=== PATIENT | male | born 1935 | race Hispanic/Latino ===

== ENCOUNTER 2017-12-07 16:43 | Observation (INO) | payer OTHER ==
[~2017-12-07] VITALS: Ht 175.3 cm; Wt 103.1 kg
--- OUTSIDE RECORDS SUMMARY | 2017-12-07 16:46 | XMS REPORT | Clinical Summary ---
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 Hydrocodone Other (See Comments) 12/05/2016 dizziness Paroxetine Hcl Other (See Comments) 01/11/2017 NAUSEA/DROWSY, LOSS OF APPETITE Penicillins Rash Low 12/05/2016 Prednisone Other (See Comments) 12/05/2016 Elevated BP and BS Current Medications Prescription Sig. Disp. Refills Start End Date Status Date atorvastatin (LIPITOR) 20 12/05/19 Active MG tablet 17 glimepiride (AMARYL) 4 MG 11/21/19 Active tablet 17 omeprazole (PriLOSEC) 20 20 mg 2 (two) times a 12/05/19 Active MG capsule day. 17 tamsulosin (FLOMAX) 0.4 10/09/19 Active mg capsule,extended 17 release 24hr losartan (COZAAR) 50 MG 50 mg daily. 12/05/19 Active tablet 17 ALPRAZolam (XANAX) 0.25 Take 0.25 mg by mouth Active MG tablet daily. CA COMB NO.1/VIT Take 5,000 Int'l Units by Active D3/B6/FA/B12 (VITAMIN D3, mouth. CALCIUM CIT-PHOS, ORAL) aspirin (ECOTRIN) 81 MG Take 81 mg by mouth Active enteric coated tablet daily. cholecalciferol, vitamin Take 5,000 Units by Active D3, 5,000 unit tablet mouth. furosemide (LASIX) 40 mg Take 40 mg by mouth. 01/28/20 Active tablet 15 cilostazol (PLETAL) 50 MG Take 50 mg by mouth. 07/21/20 Active tablet 17 cholecalciferol, vitamin Take 5,000 Units by Active D3, 5,000 unit tablet mouth. losartan (COZAAR) 50 MG TAKE ONE TABLET BY MOUTH 03/04/20 Active tablet ONCE DAILY 17 carvedilol (COREG) 25 MG 25 mg 2 (two) times a day 09/18/19 02/23/20 Discontin tablet with meals. 17 17 ued felodipine (PLENDIL) 10 11/22/19 02/23/20 Discontin MG 24 hr tablet 17 17 ued furosemide (LASIX) 40 mg Take 40 mg by mouth 2 01/16/20 Discontin tablet (two) times a day. 17 ued ibuprofen (ADVIL,MOTRIN) Take 800 mg by mouth 01/19/20 Discontin 800 MG tablet every 6 (six) hours as 17 ued needed for mild pain. ASPIRIN/CAFFEINE (GABRIELLE Take by mouth. 01/12/20 Discontin BACK AND BODY ORAL) 17 ued FOLIC Take by mouth. 02/23/20 Discontin ACID/MULTIVIT-MIN/LUTEIN 17 ued (CENTRUM SILVER ORAL) ASPIRIN/CAFFEINE (GABRIELLE Take 500 mg by mouth 2 01/19/20 Discontin BACK AND BODY ORAL) (two) times a day. 17 ued traMADol (ULTRAM) 50 mg Take 1 tablet (50 mg 30 tablet 0 01/19/20 Discontin tablet total) by mouth every 6 17 17 ued (six) hours as needed for moderate pain for up to 10 days. levoFLOXacin (LEVAQUIN) Take 1 tablet (500 mg 7 tablet 0 01/19/20 500 MG tablet total) by mouth daily for 17 17 7 days. Active Problems Problem Noted Date Aftercare following surgery of the musculoskeletal system 01/25/2017 Lumbar stenosis 01/15/2017 Coronary artery disease involving [place] coronary artery 01/15/2017 Hypertension 01/15/2017 Spinal stenosis of lumbar region with neurogenic claudication 12/05/2016 Spondylolisthesis at L4-L5 level 12/05/2016 Encounters Date Type Specialty Care Team Description 04/10/2017 Office Visit Orthopedic Surgery Arnaldo Weiner MD Spondylolisthesis at L4-L5 level (Primary Dx); Spinal stenosis of lumbar region with neurogenic claudication 02/22/2017 Office Visit Orthopedic Surgery Arnaldo Weiner MD Aftercare following surgery of the musculoskeletal system (Primary Dx); Lumbar stenosis 01/25/2017 Office Visit Orthopedic Surgery Arnaldo Weiner MD Spondylolisthesis at L4-L5 level (Primary Dx); Spinal stenosis of lumbar region with neurogenic claudication; Aftercare following surgery of the musculoskeletal system 01/22/2017 Telephone Orthopedic Surgery Shawnee Salinas RN 01/15/2017 [facility] Orthopedic Surgery Arnaldo Weiner MD Lumbar stenosis; - Encounter Spondylolisthesis, lumbar 01/18/2017 region 01/15/2017 Prep for Orthopedic Surgery Mirian Bray PA-C Surgery 01/15/2017 Procedure Pass Orthopedic Surgery 01/15/2017 Surgery Orthopedic Surgery Arnaldo Weiner MD L4-5 & L5-S1 decompressive laminectomy (Dr. David Steen) with transverse process fusion and possible internal fixation(Dr. Arnaldo Weiner) 01/11/2017 Anesthesia Orthopedic Surgery Erin Perez, [employer] INTERN Event 12/28/2016 Prep for Orthopedic Surgery Mirian Bray PA-C Surgery 12/14/2016 Prep for Orthopedic Surgery Mirian Bray PA-C Lumbar stenosis (Primary Surgery Dx); Spondylolisthesis, lumbar region after 12/06/2016 Family History Medical History Relation Name Comments Cancer Father Relation Name Status Comments Father Mother liver complications Social History Tobacco Use Types Packs/Day Years Used Date Former Smoker Smokeless Tobacco: Never Used Alcohol Use Drinks/Week oz/Week Comments No Sex Assigned at Date Recorded Not on file Last Filed Vital Signs Vital Sign Reading Time Taken Blood Pressure 141/59 01/18/2017 11:46 AM CDT Pulse 78 01/18/2017 11:46 AM CDT Temperature 36.3 C (97.4 F) 01/18/2017 11:46 AM CDT Respiratory Rate 17 01/18/2017 11:46 AM CDT Oxygen Saturation 94% 01/18/2017 11:46 AM CDT Inhaled Oxygen - - Concentration Weight 100 kg (221 lb 4 oz) 01/15/2017 5:58 AM CDT Height 175.3 cm (5' 9") 01/15/2017 5:58 AM CDT Body Mass Index 32.67 01/15/2017 5:58 AM CDT Plan of Treatment Health Maintenance Due Date Last Done Comments ZOSTER VACCINE 1993 INFLUENZA VACCINE 04/10/2017 06/13/2016, 06/29/2015, 06/24/2014, Additional history exists PNEUMOCOCCAL Completed 04/20/2010 POLYSACCHARIDE VACCINE AGE 65 AND OVER PNEUMOCOCCAL-13 Completed 03/15/2016 Implants Implanted Type Area Electroplating Laborer Device Expiration Model / Identifier Date Serial / Lot Kit Hmstc Mtrx W/ F2 8ml Surgiflo - Surgical N/A: N/A ETHICON - [id number] / [id number] Implants; / Implanted: Qty: 1 on 01/15/2017 by Shantelle; Arnaldo Weiner MD Extenders; Surgical Wires Procedures Procedure Name Priority Date/Time Associated Diagnosis Comments INTRAOPERATIVE MONITORING Routine 01/15/2017 Results for this 10:52 AM CDT procedure are in the results section. MI AN ELECTIVE Routine 01/15/2017 ENDOTRACHEAL AIRWAY 8:57 AM CDT Procedure Note - Shira Casey MD - 01/15/2017 8:56 AM CDT Airway Performed by: SHIRA CASEY Authorized by: SHIRA CASEY Location: OR Urgency: Elective Difficult Airway: No Anesthesio logist: SHIRA CASEY Performed by: anesthesio logist Preoxygena lelia with 100% O2: Yes C-spine Precaution s Maintained Throughout : No Mask Ventilatio n: Easy mask Final Airway Type: Endotrache al airway Final Endotrache al Airway: ETT Cuffed: Yes Technique Used: Video laryngosco py Insertion Site: Oral Blade type: glidescope #3. Laryngosco pe Blade/Vide olaryngosc ope Blade Size: 3 Laryngosco pic view: Grade I - full view of glottis Rapid Sequence Induction (RSI): No Modified RSI: No Number of Attempts at Approach: 1 L4-5 & L5-S1 01/15/2017 Lumbar stenosis decompressive laminectomy 7:30 AM CDT (Dr. David Steen) with transverse process fusion and possible internal fixation(Dr. Arnaldo Weiner) Case Notes Kahlil table, WRS lami & fusion sets, neuro monitoring , [employer] Special Needs Kahlil table, WRS lami & fusion sets, neuro monitoring , [employer] after 12/06/2016 Results * XR Lumbar Spine Complete 4+ Vw (04/10/2017 4:25 PM) Only the most recent of 3 results within the time period is included. Specimen Performing Laboratory [address] [address] Narrative X-rays of the lumbar spine in 4 views today reveal multilevel degenerative changes. At the L4-L5 level there is been a central decompressive laminectomy. Bone graft is seen in the lateral gutters which is in completely incorporated. On the lateral view, there is a spondylolisthesis which is unchanged from previous x-rays. * POC glucose (01/18/2017 12:18 PM) Only the most recent of 14 results within the time period is included. Component Value Ref Range POC glucose 193 (H) 65 - 99 mg/dL Comment: [facility] Notified RN Meter ID: [id number] Wind Site Manager: Joaquin Morales Specimen Performing Laboratory [facility] DEPARTMENT OF PATHOLOGY AND GENOMIC MEDICINE [address] [place] [address] * Urinalysis screen and microscopy, with reflex to culture (01/17/2017 1:43 PM) Component Value Ref Range Specimen site Clean catch Color, UA Yellow Appearance, UA Clear Specific gravity, UA 1.024 1.001 - 1.035 pH, UA 5.0 5.0 - 8.5 Protein, UA 1+ (A) Negative Glucose, UA 1+ (A) Negative Ketones, UA Trace (A) Negative Bilirubin, UA Negative Negative Blood, UA Negative Negative Nitrite, UA Negative Negative Urobilinogen, UA 4.0 (A) <2.0 Leukocyte esterase, UA Negative Negative Epithelial cells, UA <1 /HPF WBC, UA 7 (H) 0 - 1 /HPF RBC, UA 2 (H) 0 - 1 /HPF Bacteria, UA Few None seen Yeast, UA None seen Yeast with pseudohyphae, None seen UA Hyaline casts, UA 15 /LPF Specimen Performing Laboratory Urine [facility] DEPARTMENT OF PATHOLOGY AND GENOMIC MEDICINE [address] [place] [id number] * Gram stain (01/17/2017 1:43 PM) Component Value Ref Range Gram stain isolate Rare WBC's No organisms seen Comment: Specimen Information Specimen Source: Urine Specimen Site: SEE UA Specimen Performing Laboratory Urine [facility] DEPARTMENT OF PATHOLOGY AND GENOMIC MEDICINE [address] [place] [address] * Urine culture (01/17/2017 1:43 PM) Component Value Ref Range Urine culture isolate Mixed Gram negative rods 10-1 cfu/ml (A) Comment: Specimen Information Specimen Source: Urine Specimen Site: SEE UA Specimen Performing Laboratory Urine [facility] DEPARTMENT OF PATHOLOGY AND GENOMIC MEDICINE [address] [place] [address] * Respiratory pathogen panel (01/17/2017 1:10 PM) Component Value Ref Range Respiratory pathogen Negative for all pathogens tested: panel Negative for Adenovirus Negative for Coronavirus HKU1 Negative for Coronavirus NL63 Negative for Coronavirus 229E Negative for Coronavirus OC43 Negative for Human Metapneumovirus Negative for Rhinovirus/Enterovirus Negative for Influenza A Negative for Influenza A/H1 Negative for Influenza A/H3 Negative for Influenza A/H1-2009 Negative for Influenza B Negative for Parainfluenza Virus 1 Negative for Parainfluenza Virus 2 Negative for Parainfluenza Virus 3 Negative for Parainfluenza Virus 4 Negative for Respiratory Syncytial Virus Negative for Bordetella pertussis Negative for Chlamydophila pneumoniae Negative for Mycoplasma pneumoniae This real-time PCR assay detects the presence of nucleic acids (RNA or DNA) for the respiratory pathogens listed. A result of "Not-detected" does not exclude the possibility of the presence of one or more pathogens at concentrations less than the detectable limits of the assay. Comment: Specimen Information Specimen Source: Nares Specimen Site: Right Specimen Performing Laboratory Nares - [facility] DEPARTMENT OF PATHOLOGY AND GENOMIC MEDICINE [address] [place] [address] * Blood culture, aerobic & anaerobic (01/17/2017 11:50 AM) Only the most recent of 2 results within the time period is included. Component Value Ref Range Blood culture isolate No growth after 5 days of incubation. Comment: Specimen Information Specimen Source: Blood Specimen Site: Antecubital, right Specimen Performing Laboratory Blood - Antecubital, [facility] DEPARTMENT OF PATHOLOGY [place] [address] * CBC with platelet and differential (01/17/2017 11:45 AM) Component Value Ref Range WBC 11.90 (H) 4.50 - 11.00 k/uL RBC 3.48 (L) 4.40 - 6.00 m/uL HGB 11.4 (L) 14.0 - 18.0 g/dL HCT 33.9 (L) 41.0 - 51.0 % MCV 97.4 82.0 - 100.0 fL MCH 32.8 27.0 - 34.0 pg MCHC 33.6 31.0 - 37.0 g/dL RDW - SD 50.2 37.0 - 55.0 fL MPV 10.3 8.8 - 13.2 fL Platelet count 164 150 - 400 k/uL Nucleated RBC 0.00 /100 WBC Neutrophils 80.9 (H) 39.0 - 69.0 % Lymphocytes 10.5 (L) 25.0 - 45.0 % Monocytes 7.6 0.0 - 10.0 % Eosinophils 0.2 0.0 - 5.0 % Basophils 0.3 0.0 - 1.0 % Immature granulocytes 0.5Comment: "Immature granulocytes" 0.0 - 1.0 % (promyelocytes, myelocytes, metamyelocytes) Specimen Performing Laboratory Blood [facility] DEPARTMENT OF PATHOLOGY AND GENOMIC MEDICINE [address] [place] [address] * XR Chest 1 Vw Portable (01/17/2017 11:20 AM) Specimen Performing Laboratory [facility] [address] [place] [address] Narrative Examination: XR CHEST 1 VW PORTABLE Clinical history: SHORTNESS OF BREATH Comparison: November 17, 2014 Impression: 1. The cardiac silhouette is mildly enlarged. 2. Elevation of the left hemidiaphragm with hazy opacity in the left base appears represent accommodation of trace pleural fluid, atelectasis, and infiltrate. 3. Vasculature is mildly congested. 4. Follow-up nonportable PA and lateral imaging is recommended when possible. [facility]-[id number] Procedure Note Interface, Radiology Results Incoming - 01/17/2017 11:49 AM CDT Examination: XR CHEST 1 VW PORTABLE Clinical history: SHORTNESS OF BREATH Comparison: November 17, 2014 Impression: 1. The cardiac silhouette is mildly enlarged. 2. Elevation of the left hemidiaphragm with hazy opacity in the left base appears represent accommodation of trace pleural fluid, atelectasis, and infiltrate. 3. Vasculature is mildly congested. 4. Follow-up nonportable PA and lateral imaging is recommended when possible. [facility]-[id number] * CBC hemogram (01/16/2017 4:13 AM) Component Value Ref Range WBC 10.96 4.50 - 11.00 k/uL RBC 3.54 (L) 4.40 - 6.00 m/uL HGB 11.5 (L) 14.0 - 18.0 g/dL HCT 34.1 (L) 41.0 - 51.0 % MCV 96.3 82.0 - 100.0 fL MCH 32.5 27.0 - 34.0 pg MCHC 33.7 31.0 - 37.0 g/dL RDW - SD 49.4 37.0 - 55.0 fL MPV 10.2 8.8 - 13.2 fL Platelet count 181 150 - 400 k/uL Nucleated RBC 0.00 /100 WBC Specimen Performing Laboratory Blood [facility] DEPARTMENT OF PATHOLOGY AND GENOMIC MEDICINE [address] [place] [address] * Intraoperative monitoring (01/15/2017 10:52 AM) Narrative INTRAOPERATIVE NEURO MONITORING Patient Name: Seng Cummings Date of : 1935 Gender: male Surgical Procedure: L4-L5, L5-S1 Decompressive Lami with Transverse Process Fusion & Possible Internal Fix OR: (OPC) Room #: (6) Tech #1: (JN) Start Time: (08:00) End Time: (09:49) Total Time (in hours): (2) Physician IOM Time: 2 Hours Procedure(s) performed During IOM: 55853 Diagnosis: M47.16 Date of Service: 01/15/17 Technical Summary Intraoperative neurophysiological monitoring was performed using free running electromyography (EMG)of the innervated muscle groups. A real time connection was established by the monitoring technologist with the examining neurologist throughout the operative procedure. Free running EMG of the innervated muscle groups was monitored continuously throughout the operative procedure with no sustained neurotonic discharges noted. Any sustained or periodic discharges in the EMG were reported to the surgeon in real time. Conclusion The absence of sustained neurotonic discharges on free-running EMG suggests that the monitored nerve roots remained essentially undisturbed. . * XR Lumbar Spine 1 Vw (01/15/2017 9:01 AM) Specimen Performing Laboratory [facility] [address] [place] [address] Narrative EXAMINATION: XR LUMBAR SPINE 1 VW CLINICAL HISTORY: Lumbar region back pain and radiculopathy. COMPARISON:None FINDINGS: There are radiopaque instruments in the posterior paraspinal soft tissues at the L4 and L5 level. One instrument tip overlaps the canal at the L4-5 disc space level. There are degenerative changes in the lumbar spine. IMPRESSION: Lateral intraoperative radiograph of the lumbar spine for localization during lumbar spine surgery. [facility]-[id number] Procedure Note Interface, Radiology Results Incoming - 01/15/2017 9:44 AM CDT EXAMINATION: XR LUMBAR SPINE 1 VW CLINICAL HISTORY: Lumbar region back pain and radiculopathy. COMPARISON: None FINDINGS: There are radiopaque instruments in the posterior paraspinal soft tissues at the L4 and L5 level. One instrument tip overlaps the canal at the L4-5 disc space level. There are degenerative changes in the lumbar spine. IMPRESSION: Lateral intraoperative radiograph of the lumbar spine for localization during lumbar spine surgery. [facility]-[id number] * Type and screen (01/15/2017 6:00 AM) Component Value Ref Range ABO grouping A Rh type POS Antibody screen (gel) NEG Specimen Performing Laboratory Blood [facility] DEPARTMENT OF PATHOLOGY AND GENOMIC MEDICINE [address] [place] [address] after 12/06/2016 Insurance Payer Benefit Subscriber ID Type Phone Address Plan / Group [employer] xxxxxxxxx [place] [address]
--- OUTSIDE RECORDS SUMMARY | 2017-12-07 16:46 | XMS REPORT | Clinical Summary ---
Author Author [facility] Organization [facility] Address Unknown Phone Unavailable Care Team Providers Care Nail Artist Name Role Phone PCP Unavailable Allergies Active Allergy Reactions Severity Noted Date Comments Ciprofloxacin Hcl Nausea And Vomiting 07/11/2015 Hydrocodone Other (See Comments) 07/13/2014 dizziness dizziness Paroxetine Hcl Nausea Only, Other (See 07/13/2014 Drowsy,nausea,loss of Comments) appetite. Drowsy,nausea,loss of appetite. Penicillins Rash, Itching Low 04/19/2013 Current Medications Prescription Sig. Disp. Refills Start End Date Status Date glimepiride (AMARYL) 4 MG Take 4 mg by mouth every Active tablet morning before breakfast Take 2 a day. calcium carbonate-vitamin Take 1 tablet by mouth 2 Active D2 500 mg(1,250mg) -200 (two) times daily. unit tablet cholecalciferol, vitamin Take 5,000 Units by mouth Active D3, 5,000 unit Tab once a week. ALPRAZolam (XANAX) 0.25 Take 0.25 mg by mouth Active MG tablet every night as needed for Anxiety. aspirin 81 MG chewable Take 81 mg by mouth daily Active tablet . carvedilol (COREG) 25 MG Take 25 mg by mouth 2 10/15/19 Active tablet (two) times daily with 15 breakfast and dinner TAKE ONE TABLET BY MOUTH TWICE DAILY WITH MEALS. felodipine (PLENDIL) 10 Take 20 mg by mouth daily 10/28/19 Active MG 24 hr tablet . 15 furosemide (LASIX) 40 MG Take 40 mg by mouth 2 01/28/20 Active tablet (two) times daily . 15 gabapentin (NEURONTIN) Take 300 mg by mouth 3 10/27/19 Active 300 MG capsule (three) times daily . 15 losartan (COZAAR) 50 MG TAKE ONE TABLET BY MOUTH 03/08/20 Active tablet ONCE DAILY. 15 omeprazole (PRILOSEC) 20 Take 20 mg by mouth daily 05/31/20 Active MG capsule . 15 potassium chloride Take 20 mEq by mouth Active (KLOR-CON) 20 mEq packet daily . tamsulosin (FLOMAX) 0.4 TAKE TWO CAPSULES BY 06/14/20 Active mg Cp24 24 hr capsule MOUTH ONCE DAILY AT 15 BEDTIME. sitaGLIPtin (JANUVIA) 50 Take 50 mg by mouth Active MG tablet daily. doxycycline (VIBRA-TABS) 06/06/20 Active 100 MG tablet 16 XOPENEX HFA 45 06/06/20 Active mcg/actuation inhaler 16 LOTEMAX 0.5 % DrpG 04/21/20 Active 16 inhalational spacing Use with the inhaler. 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
[2017-12-07] MEDS ORDERED: NITROGLYCERIN 0.4 MG SUBL SL PRN (18:30)
[2017-12-07] MEDS ORDERED: ASPIRIN 325 MG TAB PO ONE (18:30)
[2017-12-07] MEDS ORDERED: FELODIPINE ER10 MG PO (18:53)
[2017-12-07] MEDS ORDERED: ASPIR 8181 MG PO (18:53)
[2017-12-07] MEDS ORDERED: GLIMEPIRIDE2 MG PO (18:53)
[2017-12-07] MEDS ORDERED: CARVEDILOL12.5 MG PO (18:53)
[2017-12-07] MEDS ORDERED: ALPRAZOLAM0.25 M1 PO (18:53)
[2017-12-07] MEDS ORDERED: FUROSEMIDE40 MG PO (18:53)
[2017-12-07] MEDS ORDERED: ATORVASTATIN CA20 MG PO (18:53)
[2017-12-07] MEDS ORDERED: LOTEMAX5 ML OU (18:53)
[2017-12-07] MEDS ORDERED: OMEPRAZOLE40 MG PO (18:53)
[2017-12-07] MEDS ORDERED: TAMSULOSIN HCL0.4 MG PO (18:53)
[2017-12-07] MEDS ORDERED: LOSARTAN POTASS25 MG PO (18:53)
--- OUTSIDE RECORDS SUMMARY | 2017-12-07 20:42 | XMS REPORT | Clinical Summary ---
Author Author [facility] Address Unknown Phone Unavailable Care Team Providers Care Tank Filler Name Role Phone Matt Steen MD PCP [...] Lumbar stenosis 01/15/2017 Coronary artery disease involving [place] coronary artery 01/15/2017 Hypertension 01/15/2017 Spinal stenosis [...] Telephone Orthopedic Surgery Shawnee Salinas RN 01/15/2017 [facility] Orthopedic Surgery Arnaldo Weiner MD Lumbar stenosis; - Encounter Spondylolisthesis, lumbar 01/18/2017 region 01/15/2017 Prep for Orthopedic Surgery Mirian Bray PA-C Surgery 01/15/2017 Procedure Pass Orthopedic Surgery 01/15/2017 Surgery Orthopedic Surgery Arnaldo Weiner MD L4-5 & L5-S1 decompressive laminectomy (Dr. David Steen) with transverse process fusion and possible internal fixation(Dr. Arnaldo Weiner) 01/11/2017 Anesthesia Orthopedic Surgery Erin Perez, FURNACE CONVERTER Event 12/28/2016 Prep for Orthopedic Surgery Mirian [...] PNEUMOCOCCAL-13 Completed 03/15/2016 Implants Implanted Type Area Signal Mechanic Device Expiration Model / Identifier Date Serial / Lot Kit Hmstc Mtrx W/ F2 8ml Surgiflo - Surgical N/A: N/A ETHICON - [id number] / [id number] Implants; / Implanted: Qty: 1 on 01/15/2017 by Shantelle; Arnaldo Weiner MD Extenders; Surgical Wires Procedures Procedure Name Priority Date/Time Associated Diagnosis Comments INTRAOPERATIVE MONITORING Routine 01/15/2017 Results for this 10:52 AM CDT procedure are in the results section. OR AN ELECTIVE Routine 01/15/2017 ENDOTRACHEAL AIRWAY 8:57 [...] time period is included. Specimen Performing Laboratory [address] [address] Narrative X-rays of the lumbar spine in [...] 193 (H) 65 - 99 mg/dL Comment: [facility] Notified RN Meter ID: [id number] Microfiche Camera Operator: Joaquin Morales Specimen Performing Laboratory [facility] DEPARTMENT OF PATHOLOGY AND GENOMIC MEDICINE [address] [place] [address] * Urinalysis screen and microscopy, with reflex [...] UA 15 /LPF Specimen Performing Laboratory Urine [facility] DEPARTMENT OF PATHOLOGY AND GENOMIC MEDICINE [address] [place] [address] * Gram stain (01/17/2017 1:43 PM) Component Value Ref Range Gram stain isolate Rare WBC's No organisms seen Comment: Specimen Information Specimen Source: Urine Specimen Site: SEE UA Specimen Performing Laboratory Urine [facility] DEPARTMENT OF PATHOLOGY AND GENOMIC MEDICINE [address] [place] [address] * Urine culture (01/17/2017 1:43 PM) Component Value Ref Range Urine culture isolate Mixed Gram negative rods 10-1 cfu/ml (A) Comment: Specimen Information Specimen Source: Urine Specimen Site: SEE UA Specimen Performing Laboratory Urine [facility] DEPARTMENT OF PATHOLOGY AND GENOMIC MEDICINE [address] [place] [address] * Respiratory pathogen panel (01/17/2017 1:10 PM) [...] Site: Right Specimen Performing Laboratory Nares - [facility] DEPARTMENT OF PATHOLOGY AND GENOMIC MEDICINE [address] [place] [address] * Blood culture, aerobic & anaerobic (01/17/2017 11:50 AM) Only the most recent of 2 results within the time period is included. Component Value Ref Range Blood culture isolate No growth after 5 days of incubation. Comment: Specimen Information Specimen Source: Blood Specimen Site: Antecubital, right Specimen Performing Laboratory Blood - Antecubital, [facility] DEPARTMENT OF PATHOLOGY [place] [address] * CBC with platelet and differential (01/17/2017 [...] (promyelocytes, myelocytes, metamyelocytes) Specimen Performing Laboratory Blood [facility] DEPARTMENT OF PATHOLOGY AND GENOMIC MEDICINE [address] [place] [address] * XR Chest 1 Vw Portable (01/17/2017 11:20 AM) Specimen Performing Laboratory [facility] [address] [place] [address] Narrative Examination: XR CHEST 1 VW PORTABLE Clinical history: SHORTNESS OF BREATH Comparison: November 17, 2014 Impression: 1. The cardiac silhouette is mildly enlarged. 2. Elevation of the left hemidiaphragm with hazy opacity in the left base appears represent accommodation of trace pleural fluid, atelectasis, and infiltrate. 3. Vasculature is mildly congested. 4. Follow-up nonportable PA and lateral imaging is recommended when possible. [facility]-[id number] Procedure Note Interface, Radiology Results Incoming - [...] and lateral imaging is recommended when possible. [facility]-[id number] * CBC hemogram (01/16/2017 4:13 AM) Component [...] 0.00 /100 WBC Specimen Performing Laboratory Blood [facility] DEPARTMENT OF PATHOLOGY AND GENOMIC MEDICINE [address] [place] [address] * Intraoperative monitoring (01/15/2017 10:52 AM) Narrative INTRAOPERATIVE NEURO MONITORING Patient Name: Seng Cummings Date of : 1935 Gender: male Surgical Procedure: L4-L5, L5-S1 Decompressive Lami with Transverse Process Fusion & Possible Internal Fix OR: (OPC) Room #: (6) Tech #1: (JN) Start Time: (08:00) End Time: (09:49) Total Time (in hours): (2) Physician IOM Time: 2 Hours Procedure(s) performed During IOM: 41806 Diagnosis: M47.16 Date of Service: 01/15/17 Technical [...] (01/15/2017 9:01 AM) Specimen Performing Laboratory [facility] [address] [place] [address] Narrative EXAMINATION: XR LUMBAR SPINE 1 VW [...] spine for localization during lumbar spine surgery. [facility]-[id number] Procedure Note Interface, Radiology Results Incoming - [...] spine for localization during lumbar spine surgery. [facility]-[id number] * Type and screen (01/15/2017 6:00 AM) Component Value Ref Range ABO grouping A Rh type POS Antibody screen (gel) NEG Specimen Performing Laboratory Blood [facility] DEPARTMENT OF PATHOLOGY AND GENOMIC MEDICINE [address] [place] [address] after 12/06/2016 Insurance Payer Benefit Subscriber ID Type Phone Address Plan / Group TEXANPLUS TEXANPLUS xxxxxxxxx [place] [address]
--- OUTSIDE RECORDS SUMMARY | 2017-12-07 20:42 | XMS REPORT | Clinical Summary ---
Author Author JOHN [facility] Organization [facility] Address Unknown Phone Unavailable Care Team Providers Care Composition Worker Name Role Phone PCP Unavailable Allergies Active [...]
[2017-12-07 21:00] VITALS: BP 177/76
[2017-12-07 21:50] VITALS: BP 157/72
[2017-12-07] MEDS ORDERED: HYDRALAZINE HCL 20 MG/ML VIAL IV PRN (22:15)
[2017-12-07] MEDS ORDERED: DEXTROSE 50% SYRINGE 50 ML IV PRN (22:15)
[2017-12-07] MEDS: CARVEDILOL 12.5 MG TAB PO SCH (23:09)
[2017-12-07] MEDS: INSULIN LISPRO 100 UNIT/1 ML 3ML VIAL SQ SCH (23:10)
[2017-12-07 23:30] VITALS: BP 157/72
[2017-12-08] VITALS: BP 157/72
[2017-12-08 04:00] VITALS: BP 157/72
[2017-12-08] MEDS: INSULIN LISPRO 100 UNIT/1 ML 3ML VIAL SQ SCH ×2 (07:30→11:30)
[2017-12-08 07:39] LABS: BASOPHILS # (AUTO) 0.1 (0.0-0.1); BASOPHILS % 0.5 % (0.0-1.0); EOSINOPHILS # (AUTO) 0.4 (0.0-0.4); EOSINOPHILS % 3.2 % (0.0-6.0); HEMATOCRIT 35.9 % (38.2-49.6); HEMOGLOBIN 12.1 g/dL (14.0-18.0); LYMPHOCYTES # (AUTO) 2.7 (1.0-3.2); LYMPHOCYTES % 24.9 % (18.0-39.1); MEAN CORPUSCULAR HEMOGLOBIN 32.3 pg (28-32); MEAN CORPUSCULAR HGB CONC 33.7 g/dL (31-35); MEAN CORPUSCULAR VOLUME 95.7 fL (81-99); MONOCYTES # (AUTO) 0.8 (0.2-0.8); MONOCYTES % 7.7 % (4.4-11.3); NEUTROPHILS # (AUTO) 6.8 (2.1-6.9); NEUTROPHILS % 63.2 % (38.7-80.0); PLATELET COUNT 215 x10e3/uL (140-360); RED BLOOD COUNT 3.75 x10e6/uL (4.3-5.7)
[2017-12-08 07:59] VITALS: BP 174/74
[2017-12-08 08:03] LABS: ALANINE AMINOTRANSFERASE 14 IU/L (0-55); ALBUMIN 3.5 g/dL (3.5-5.0); ALKALINE PHOSPHATASE 71 IU/L (40-150); ANION GAP 11.6 mmol/L (8-16); BLOOD UREA NITROGEN 19 mg/dL (7-26); BUN/CREATININE RATIO 22 (6-25); CALCIUM 8.8 mg/dL (8.4-10.2); CARBON DIOXIDE 26 mmol/L (22-29); CHLORIDE 105 mmol/L (98-107); CREATINE KINASE 52 IU/L (30-200); CREATININE, SERUM 0.86 mg/dL (0.72-1.25); EST GLOMERULAR FILTRATION RATE > 60 ML/MIN (60-); GLUCOSE 82 mg/dL (74-118); POTASSIUM 3.6 mmol/L (3.5-5.1); SODIUM 139 mmol/L (136-145)
[2017-12-08 08:07] LABS: CHOL/HDL RATIO 2.3 (3.9-4.7)
[2017-12-08 10:30] VITALS: BP 174/74
[2017-12-08] MEDS: CARVEDILOL 12.5 MG TAB PO SCH (10:30)
[2017-12-08] MEDS ORDERED: ALPRAZOLAM 0.25 MG TAB PO PRN (11:00)
--- NOTE | 2017-12-08 11:43 | Discharge Summary ---
PRIMARY CARE PHYSICIAN: ELISEO PHILIP MD. FINAL DIAGNOSES 1. Non-cardiac chest pain due to side effects from prednisone. 2. Hypertension. 3. Coronary artery disease with previous bypass surgery about 12 years ago. 4. Dyslipidemia. 5. Diabetes. 6. Benign prostatic hypertrophy. 7. Gastroesophageal reflux disease. CONSULTANTS: None. PROCEDURES/STUDIES PERFORMED: None. HISTORY: Per H\T\P. HOSPITAL COURSE: Currently, the patient is completely chest pain free, back to baseline. His chest discomfort lasted for several hours. His repeat troponins are negative. Repeat EKG is completely normal. His chest pain is likely due to side effects from prednisone which he took for the first time yesterday morning right before his chest pain. CONDITION ON DISCHARGE: Stable. DISCHARGE MEDICATIONS: Please see medication reconciliation form. The patient was seen and examined today. ANIVAL HERRMANN M.D. Job#: [id number] cc:ELISEO PHILIP M.D.
[2017-12-08 12:00] VITALS: BP 124/67
[2017-12-08] MEDS ORDERED: LOSARTAN POTASSIUM 25 MG TAB PO SCH (12:45)
[2017-12-08] MEDS ORDERED: TAMSULOSIN HCL 0.4 MG CAP PO SCH (21:00)
[2017-12-08] MEDS ORDERED: ATORVASTATIN 20 MG TAB PO SCH (21:00)
[2017-12-09] MEDS ORDERED: PANTOPRAZOLE SOD 40 MG TABEC PO SCH (07:30)
[2017-12-09] MEDS ORDERED: FUROSEMIDE 40 MG TAB PO SCH (09:00)
[2017-12-09] MEDS ORDERED: FELODIPINE 5 MG TAB CR PO SCH (09:00)
[2017-12-09] MEDS ORDERED: GLIMEPIRIDE 2 MG TAB PO SCH (09:00)
[2017-12-09] MEDS ORDERED: LOSARTAN POTASSIUM 25 MG TAB PO SCH (09:00)
== END 2017-12-08 14:31 | disposition home or self-care (01) ==
LOC: FSED 16:43 → MED/SURG 20:39
PROVIDERS: ADMIT Internal Medicine; ATTEND Internal Medicine
DX: R07.89 Other chest pain (principal); T38.0X5A Adverse effect of glucocorticoids and synthetic analogues, initial encounter; I10 Essential (primary) hypertension; E11.65 Type 2 diabetes mellitus with hyperglycemia; Z95.1 Presence of aortocoronary bypass graft; E78.5 Hyperlipidemia, unspecified; N40.0 Benign prostatic hyperplasia without lower urinary tract symptoms; K21.9 Gastro-esophageal reflux disease without esophagitis; I25.10 Atherosclerotic heart disease of native coronary artery without angina pectoris
CPT/HCPCS: 36415 ×2; 80053; 80061; 82550; 82553; 82948 ×2; 84484; 85025; 93005 ×2; 99284; G0378 ×2

== ENCOUNTER 2018-12-18 17:12 | Observation (INO) | payer OTHER ==
[~2018-12-18] VITALS: Ht 175.3 cm; Wt 107.7 kg
[~2018-12-18 17:12] MED LIST: ALPRAZOLAM0.25 M1 PO; ASPIR 8181 MG PO; ATORVASTATIN CA20 MG PO; CARVEDILOL12.5 MG PO; FELODIPINE ER10 MG PO; FUROSEMIDE40 MG PO; GLIMEPIRIDE2 MG PO; LOSARTAN POTASS25 MG PO; LOTEMAX5 ML OU; OMEPRAZOLE40 MG PO; TAMSULOSIN HCL0.4 MG PO
--- OUTSIDE RECORDS SUMMARY | 2018-12-18 17:14 | XMS REPORT ---
Author Author [facility] Address Unknown Phone Unavailable Care Team Providers Care Farm Operations Manager Name Role Phone Unavailable Unavailable Problems This patient has no known problems. Allergies, Adverse Reactions, Alerts This patient has no known allergies or adverse reactions. Medications This patient has no known medications. Results Test Description Test Time Test Comments Text Results Atomic Results Result Comments MR, SPINE, LUMBAR, WITHOUT CONTRAST 2018-12-10 14:48:00 FINAL REPORT MR, SPINE, LUMBAR, WITHOUT CONTRAST INDICATION: SPINAL STENOSIS OF LUMBAR REGION WITH NEUROGENIC CLAUDIFICATION,RADICULAR PAIN OF RT LOWER EXTREMITY,RADICULAR PAIN OF LT LOWER EXTREMITY COMPARISON: 10/31/16 TECHNIQUE: Multiplanar, multisequence MR images of the lumbar spine without contrast. FINDINGS: Numbering: Last fully formed disc space is designated L5-S1. Spinal cord: The conus medullaris is normal is size, signal intensity, and position, terminating at the T12-L1 level. Osseous structures: There is grossly preserved alignment. Anterolisthesis is approximately grade 1 at L4-5. This is unchanged from prior. There is gross preservation of vertebral body height. No aggressive osseous lesions are identified. Discs: There is multilevel disc dessication without significant loss of disc space height. Evaluation of the individual levels demonstrates: L1/L2: Degenerative changes creating mild to moderate canal narrowing. Mild bilateral foraminal stenosis. L2/L3: No canal narrowing. Mild bilateral foraminal stenosis. L3/L4: Broad disc bulge and facet arthropathy creating moderate canal narrowing. Moderate to severe bilateral foraminal stenosis. Laminectomy changes are present. L4/L5: Pseudobulge of subluxation superimposed on degenerative changes. Prior laminectomies relieving canal narrowing. Moderate to severe bilateral foraminal stenosis is present. L5 /S1: No canal or foraminal stenosis. Paraspinal soft tissues: Paraspinal soft tissues and visible retroperitoneal structures are unremarkable. IMPRESSION: Laminectomies the L4 and L5 relating canal narrowing. Moderate to severe bilateral foraminal stenosis at L3-4 and L4-5. Signed: JR Dial [facility] Verified Date/Time: 12/10/2018 14:48:50 Reading Location: [facility] Radiology Reading Room
--- OUTSIDE RECORDS SUMMARY | 2018-12-18 17:14 | XMS REPORT | Clinical Summary ---
Author Author JOHN [facility] Organization [facility] Address Unknown Phone Unavailable Care Team Providers Care Algorithm Design Engineer Name Role Phone Jroge Marie 31 Unavailable Kylah Fierro MD PCP Unavailable Allergies Comments Active Allergy Reactions Severity Noted Date Ciprofloxacin Hcl Nausea And 07/11/2015 Vomiting dizziness dizziness Hydrocodone Other (See 07/13/2014 Comments) Drowsy,nausea,loss of appetite. Drowsy,nausea,loss of appetite. Paroxetine Hcl Nausea Only, 07/13/2014 Other (See Comments) Penicillins Rash, Itching Low 04/19/2013 Medications End Date Status Medication Sig Dispensed Refills Start Date Active glimepiride (AMARYL) 4 MG Take 4 mg by 0 tablet mouth every morning before breakfast Take 2 a day. Active calcium carbonate-vitamin Take 1 tablet 0 D2 500 mg(1,250mg) -200 by mouth 2 unit tablet (two) times daily. Active cholecalciferol, vitamin Take 5,000 0 D3, 5,000 unit Tab Units by mouth once a week. Active ALPRAZolam (XANAX) 0.25 Take 0.25 mg 0 MG tablet by mouth every night as needed for Anxiety. Active aspirin 81 MG chewable Take 81 mg by 0 tablet mouth daily . Active carvedilol (COREG) 25 MG Take 25 mg by 0 02/05/201 tablet mouth 2 (two) 5 times daily with breakfast and dinner TAKE ONE TABLET BY MOUTH TWICE DAILY WITH MEALS. Active felodipine (PLENDIL) 10 Take 20 mg by 0 02/18/201 MG 24 hr tablet mouth daily . 5 Active furosemide (LASIX) 40 MG Take 40 mg by 0 05/20/201 tablet mouth 2 (two) 5 times daily . Active gabapentin (NEURONTIN) Take 300 mg 0 300 MG capsule by mouth 3 5 (three) times daily . Active losartan (COZAAR) 50 MG TAKE ONE 0 tablet TABLET BY 5 MOUTH ONCE DAILY. Active omeprazole (PRILOSEC) 20 Take 20 mg by 0 MG capsule mouth daily . 5 Active potassium chloride Take 20 mEq 0 (KLOR-CON) 20 mEq packet by mouth daily . Active tamsulosin (FLOMAX) 0.4 TAKE TWO 0 mg Cp24 24 hr capsule CAPSULES BY 5 MOUTH ONCE DAILY AT BEDTIME. Active sitaGLIPtin (JANUVIA) 50 Take 50 mg by 0 MG tablet mouth daily. Active doxycycline (VIBRA-TABS) 0 100 MG tablet 6 Active XOPENEX HFA 45 0 mcg/actuation inhaler 6 Active LOTEMAX 0.5 % DrpG 0 6 Active inhalational spacing Use with the 1 each 0 device (AEROCHAMBER) Spcr inhaler. 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 Cholecystitis 11/09/2014 HTN (hypertension) 11/09/2014 CAD (coronary artery disease) 11/09/2014 DM (diabetes mellitus) 11/09/2014 Chest pain 10/19/2014 Constipation 10/19/2014 Leukocytosis 10/19/2014 Encounters Care Team Description Date Type Specialty Holly Gastelum DO Spinal stenosis of lumbar region with neurogenic claudication; Radicular pain of left lower extremity; Radicular pain of right lower extremity 12/10/2018 Hospital Radiology Encounter Holly Gastelum DO Spinal stenosis of lumbar region with neurogenic claudication (Primary Dx); Radicular syndrome of right leg; Radicular pain of left lower extremity; Radicular pain of right lower extremity 12/05/2018 Outside Orders Radiology after 12/17/2017 Family History Medical History Relation Name Comments Cancer Brother Relation Name Status Comments Brother Social History Date Tobacco Use Types Packs/Day Years Used Never Smoker Alcohol Use Drinks/Week oz/Week Comments No Sex Assigned at Date Recorded Not on file Industry Job Start Date Occupation Not on file Not on file Not on file Travel End Travel History Travel Start No recent travel history available. Last Filed Vital Signs Not on file Plan of Treatment Not on file Procedures Comments Procedure Name Priority Date/Time Associated Diagnosis MR SPINE LUMBAR WITHOUT Routine 12/10/2018 Spinal stenosis of lumbar IV CONTRAST 2:49 PM CDT region with neurogenic claudication Radicular pain of left lower extremity Radicular pain of right lower extremity after 12/17/2017 Results * MR spine lumbar without IV contrast (12/10/2018 2:49 PM CDT) Narrative Performed At FINAL REPORT [facility] MR, SPINE, LUMBAR, WITHOUT CONTRAST INDICATION: SPINAL STENOSIS OF LUMBAR REGION WITH NEUROGENIC CLAUDIFICATION,RADICULAR PAIN OF RT LOWER EXTREMITY,RADICULAR PAIN OF LT LOWER EXTREMITY COMPARISON: 10/31/16 TECHNIQUE: Multiplanar, multisequence MR images of the lumbar spine without contrast. FINDINGS: Numbering: Last fully formed disc space is designated L5-S1. Spinal cord: The conus medullaris is normal is size, signal intensity, and position, terminating at kamP48-G2 level. Osseous structures: There is grossly preserved alignment. Anterolisthesis is approximately grade 1 at L4-5. This is unchanged from prior. There is gross preservation of vertebral body height. No aggressive osseous lesions are identified. Discs:There is multilevel disc dessication without significant loss [...] to severe bilateral foraminal stenosis is present. L5/S1: No canal or foraminal stenosis. Paraspinal soft tissues: Paraspinal soft tissues and visible retroperitoneal structures are unremarkable. IMPRESSION: Laminectomies the L4 and L5 relating canal narrowing. Moderate to severe bilateral foraminal stenosis at L3-4 and L4-5. Signed: JR Lujan Robert MD Report Verified Date/Time:12/10/2018 14:48:50 Reading Location: [facility] Radiology Reading Room Procedure Note Interface, External Ris In - 12/10/2018 2:51 PM CDT FINAL REPORT MR, SPINE, LUMBAR, WITHOUT CONTRAST [...] to severe bilateral foraminal stenosis is present. L5/S1: No canal or foraminal stenosis. Paraspinal soft tissues: Paraspinal soft tissues and visible retroperitoneal structures are unremarkable. IMPRESSION: Laminectomies the L4 and L5 relating canal narrowing. Moderate to severe bilateral foraminal stenosis at L3-4 and L4-5. Signed: JR Lujan Robert MD Report Verified Date/Time: 12/10/2018 14:48:50 Reading Location: [facility] Radiology Reading Room Performing Organization Address City/State/Zipcode Phone Number GE RIS after 12/17/2017 Insurance Payer Benefit Subscriber ID Type Phone Address Plan / Group TEXANPLUS TEXANPLUS xxxxxxxxx [facility] Contracted Advance Directives For more information, please contact: [place] [phone] [place] [address] Date Inactivated Comments Code Status Date Activated 08/21/2015 4:44 PM Full Code 08/17/2015 8:22 AM This code status was determined by: Patient 11/12/2014 3:36 PM Full Code 11/09/2014 3:10 PM This code status was determined by: Patient 10/20/2014 9:46 PM Full Code 10/19/2014 4:53 PM This code status was determined by: Patient 07/29/2014 1:34 PM Full Code 07/24/2014 4:00 PM This code status was determined by: Patient
--- OUTSIDE RECORDS SUMMARY | 2018-12-18 17:14 | XMS REPORT | Clinical Summary ---
Author Author [facility] Organization [facility] Address Unknown Phone Unavailable Care Team Providers Care Director Of Food And Nutrition Name Role Phone David Steen MD PCP Allergies Comments Active Allergy Reactions Severity Noted Date Decreased glucose level to 30's.. Ciprofloxacin Other (See 12/05/2016 Comments) dizziness Hydrocodone Other (See 12/05/2016 Comments) NAUSEA/DROWSY, LOSS OF APPETITE Paroxetine Hcl Other (See 01/11/2017 Comments) Penicillins Rash Low 12/05/2016 Elevated BP and BS Prednisone Other (See 12/05/2016 Comments) Medications End Date Status Medication Sig Dispensed Refills Start Date Active atorvastatin (LIPITOR) 20 0 MG tablet 7 Active glimepiride (AMARYL) 4 MG 0 tablet 7 Active omeprazole (PriLOSEC) 20 20 mg 2 (two) 0 MG capsule times a day. 7 Active tamsulosin (FLOMAX) 0.4 0 mg capsule,extended 7 release 24hr Active losartan (COZAAR) 50 MG 50 mg daily. 0 tablet 7 Active ALPRAZolam (XANAX) 0.25 Take 0.25 mg 0 MG tablet by mouth daily. Active CA COMB NO.1/VIT Take 5,000 0 D3/B6/FA/B12 (VITAMIN D3, Int'l Units CALCIUM CIT-PHOS, ORAL) by mouth. Active aspirin (ECOTRIN) 81 MG Take 81 mg by 0 enteric coated tablet mouth daily. Active cholecalciferol, vitamin Take 5,000 0 D3, 5,000 unit tablet Units by mouth. Active furosemide (LASIX) 40 mg Take 40 mg by 0 tablet mouth. 5 Active cilostazol (PLETAL) 50 MG Take 50 mg by 0 tablet mouth. 7 Active cholecalciferol, vitamin Take 5,000 0 D3, 5,000 unit tablet Units by mouth. Active losartan (COZAAR) 50 MG TAKE ONE 0 tablet TABLET BY 7 MOUTH ONCE DAILY Active Problems Problem Noted Date Aftercare following surgery of the musculoskeletal system 01/25/2017 Lumbar stenosis 01/15/2017 Coronary artery disease involving [place] coronary artery 01/15/2017 Hypertension 01/15/2017 Spinal stenosis of lumbar region with neurogenic claudication 12/05/2016 Spondylolisthesis at L4-L5 level 12/05/2016 Family History Medical History Relation Name Comments Cancer Father Relation Name Status Comments Father Mother liver complications Social History Date Tobacco Use Types Packs/Day Years Used Former Smoker Smokeless Tobacco: Never Used Alcohol Use Drinks/Week oz/Week Comments No Sex Assigned at Date Recorded Not on file Industry Job Start Date Occupation Not on file Not on file Not on file Travel End Travel History Travel Start No recent travel history available. Last Filed Vital Signs Not on file Plan of Treatment Health Maintenance Due Date Last Done Comments SHINGLES VACCINES (#1) 1983 INFLUENZA VACCINE 04/10/2019 06/13/2016, 06/29/2015, 06/24/2014, Additional history exists PNEUMOCOCCAL Completed 04/20/2010 POLYSACCHARIDE VACCINE AGE 65 AND OVER 65+ PNEUMOCOCCAL VACCINE Completed 03/15/2016, 04/20/2010 Implants Device Identifier Shelf Expiration Date Model / Serial / Lot Implanted Type Area Manufactur er [id number] / / Kit Hmstc Mtrx W/ F2 8ml Surgiflo - Surgical N/A: N/A ETHICON [id number] Implants; [facility] Implanted: Qty: 1 on 01/15/2017 by Expanders; Arnaldo Weiner MD Extenders; Surgical Wires Results Not on fileafter 12/17/2017 Insurance Payer Benefit Subscriber ID Type Phone Address Plan / Group TEXANPLUS TEXANPLUS xxxxxxxxx Inge MCINTYRE Advance Directives Patient has advance care planning documents on file. For more information, wes marvin contact: Panchito Liz [address] [place] [address]
[2018-12-18] MEDS ORDERED: ASPIRIN 81 MG CHEW TAB PO ONE ×2 (17:30→19:15)
[2018-12-18 18:09] LABS: BASOPHILS # (AUTO) 0.1 (0.0-0.1); BASOPHILS % 0.9 % (0.0-1.0); EOSINOPHILS # (AUTO) 0.6 (0.0-0.4); EOSINOPHILS % 7.1 % (0.0-6.0); HEMATOCRIT 36.2 % (38.2-49.6); LYMPHOCYTES # (AUTO) 1.8 (1.0-3.2); LYMPHOCYTES % 22.2 % (18.0-39.1); MEAN CORPUSCULAR HEMOGLOBIN 32.7 pg (28-32); MEAN CORPUSCULAR HGB CONC 33.1 g/dL (31-35); MEAN CORPUSCULAR VOLUME 98.6 fL (81-99); MONOCYTES # (AUTO) 0.6 (0.2-0.8); NEUTROPHILS # (AUTO) 4.9 (2.1-6.9); NEUTROPHILS % 61.5 % (38.7-80.0); PLATELET COUNT 224 x10e3/uL (140-360); RED BLOOD COUNT 3.67 x10e6/uL (4.3-5.7); RED CELL DISTRIBUTION WIDTH 13.9 % (11.7-14.4)
--- NOTE | 2018-12-18 18:14 | Diagnostic Imaging Report ---
EXAMINATION: PA and lateral views of the chest. COMPARISON: None CLINICAL HISTORY: Chest pain DISCUSSION: Lines/tubes: Sternotomy wires. Lungs: The lungs are well inflated and clear. No pneumonia or pulmonary edema. Pleura: No pleural effusion or pneumothorax. Heart and mediastinum: Cardiomegaly. Bones and soft tissues: No acute bony abnormalities. IMPRESSION: Cardiomegaly without decompensation Signed by: Dr. Jairo Moralez M.D. on 12/18/2018 6:11 PM
[2018-12-18 18:15] LABS: BILIRUBIN,URINE NEGATIVE (NEGATIVE); CLARITY,URINE CLEAR (CLEAR); COLOR,URINE YELLOW (YELLOW); KETONES,URINE NEGATIVE (NEGATIVE); LEUKOCYTE ESTERASE ,URINE NEGATIVE (NEGATIVE); NITRITE,URINE NEGATIVE (NEGATIVE); PROTEIN,URINE DIPSTICK NEGATIVE (NEGATIVE); URINE UROBILINOGEN 0.2 mg/dL (0.2 - 1)
[2018-12-18 18:21] LABS: INR 0.91; PROTHROMBIN TIME 12.7 seconds (11.9-14.5)
[2018-12-18 18:22] LABS: PARTIAL THROMBOPLASTIN TIME 33.2 seconds (23.8-35.5)
[2018-12-18 18:24] LABS: ALANINE AMINOTRANSFERASE 12 IU/L (0-55); ALBUMIN 3.6 g/dL (3.5-5.0); ALBUMIN/GLOBULIN RATIO 0.9 (0.8-2.0); ALKALINE PHOSPHATASE 76 IU/L (40-150); BLOOD UREA NITROGEN 19 mg/dL (7-26); BUN/CREATININE RATIO 17 (6-25); CARBON DIOXIDE 26 mmol/L (22-29); CHLORIDE 104 mmol/L (98-107); CREATINE KINASE 60 IU/L (30-200); CREATININE, SERUM 1.11 mg/dL (0.72-1.25); EST GLOMERULAR FILTRATION RATE > 60 ML/MIN (60-); GLUCOSE 115 mg/dL (74-118); MAGNESIUM 2.2 MG/DL (1.3-2.1); SODIUM 137 mmol/L (136-145)
[2018-12-18 18:28] LABS: BACTERIA,URINE RARE /HPF
[2018-12-18 18:43] LABS: THYROID STIMULATING HORMONE 1.322 uIU/mL (0.350-4.940)
[2018-12-18] MEDS ORDERED: ONDANSETRON HCL INJ 2MG/ML 2ML 2 MG/ML VIAL IV PRN (19:15)
[2018-12-18] MEDS ORDERED: SODIUM CHLORIDE FLUSH 10 ML SYR INJ PRN (19:15)
[2018-12-18] MEDS ORDERED: NITROGLYCERIN 0.4 MG SUBL SL PRN (19:15)
[2018-12-18] MEDS ORDERED: ONDANSETRON HCL 4 MG ORAL DISINTEGRATING TAB PO PRN (19:30)
--- OUTSIDE RECORDS SUMMARY | 2018-12-18 19:33 | XMS REPORT | Clinical Summary ---
Author Author JOHN [facility] Organization [facility] Address Unknown Phone Unavailable Care Team Providers Care It Technical Specialist Name Role Phone Jorge Marie 31 Unavailable Kylah Fierro MD PCP [...] PM CDT) Narrative Performed At FINAL REPORT [employer] MR, SPINE, LUMBAR, WITHOUT CONTRAST INDICATION: SPINAL STENOSIS OF LUMBAR REGION WITH NEUROGENIC CLAUDIFICATION,RADICULAR PAIN OF RT LOWER EXTREMITY,RADICULAR PAIN OF LT LOWER EXTREMITY COMPARISON: 10/31/16 TECHNIQUE: Multiplanar, multisequence MR images of the lumbar spine without contrast. FINDINGS: Numbering: Last fully formed disc space is designated L5-S1. Spinal cord: The conus medullaris is normal is size, signal intensity, and position, terminating at [id number]-T0 level. Osseous structures: There is grossly preserved [...] MD Report Verified Date/Time:12/10/2018 14:48:50 Reading Location: [facility] Radiology Reading Room Procedure Note Interface, External [...] Report Verified Date/Time: 12/10/2018 14:48:50 Reading Location: [facility] Radiology Reading Room Performing Organization Address City/State/Zipcode Phone Number GE RIS after 12/17/2017 Insurance Payer Benefit Subscriber ID Type Phone Address Plan / Group TEXANPLUS TEX[facility]US x[facility] Contracted Advance Directives For more information, please contact: [phone] [place] [address] Date Inactivated Comments Code Status [...]
--- OUTSIDE RECORDS SUMMARY | 2018-12-18 19:33 | XMS REPORT | Clinical Summary ---
Author Author [facility] Address Unknown Phone Unavailable Care Team Providers Care Customs Compliance Director Name Role Phone David Steen MD PCP [...] Lumbar stenosis 01/15/2017 Coronary artery disease involving [place] coronary artery 01/15/2017 Hypertension 01/15/2017 Spinal stenosis [...] 8ml Surgiflo - Surgical N/A: N/A ETHICON [id number] Implants; [facility] Implanted: Qty: 1 on 01/15/2017 by Expanders; Arnaldo Weiner MD Extenders; Surgical Wires Results Not on fileafter 12/17/2017 Insurance Payer Benefit Subscriber ID Type Phone Address Plan / Group TEXANPLUS TEXANPLUS xxxxxxxxx Inge MCINTYRE Advance Directives Patient has advance care planning documents on file. For more information, wes marvin contact: Panchito Liz [address] [place] [address]
[2018-12-18] MEDS: FAMOTIDINE 20 MG TAB PO SCH (19:46)
[2018-12-18 20:00] VITALS: BP 155/80
[2018-12-18 20:23] VITALS: BP 155/80
[2018-12-18 23:56] VITALS: BP 143/59
[2018-12-19] VITALS (7 sets, daily range): BP systolic 152–164; BP diastolic 71–83
[2018-12-19] MEDS: NITROGLYCERIN 2% OINT 1 GM PKT TOP SCH ×3 (05:10→12:00)
[2018-12-19 05:40] LABS: BASOPHILS # (AUTO) 0.1 (0.0-0.1); BASOPHILS % 0.8 % (0.0-1.0); EOSINOPHILS # (AUTO) 0.6 (0.0-0.4); EOSINOPHILS % 7.5 % (0.0-6.0); HEMATOCRIT 33.8 % (38.2-49.6); HEMOGLOBIN 11.4 g/dL (14.0-18.0); LYMPHOCYTES # (AUTO) 2.1 (1.0-3.2); LYMPHOCYTES % 24.9 % (18.0-39.1); MEAN CORPUSCULAR HEMOGLOBIN 32.9 pg (28-32); MEAN CORPUSCULAR HGB CONC 33.7 g/dL (31-35); MEAN CORPUSCULAR VOLUME 97.4 fL (81-99); MONOCYTES # (AUTO) 0.6 (0.2-0.8); MONOCYTES % 7.3 % (4.4-11.3); NEUTROPHILS % 59.1 % (38.7-80.0); PLATELET COUNT 212 x10e3/uL (140-360); RED BLOOD COUNT 3.47 x10e6/uL (4.3-5.7); RED CELL DISTRIBUTION WIDTH 13.9 % (11.7-14.4)
[2018-12-19 05:46] LABS: ANION GAP 10.7 mmol/L (8-16); BLOOD UREA NITROGEN 16 mg/dL (7-26); BUN/CREATININE RATIO 19 (6-25); CALCIUM 8.6 mg/dL (8.4-10.2); CARBON DIOXIDE 27 mmol/L (22-29); CHLORIDE 105 mmol/L (98-107); CHOL/HDL RATIO 2.1 (3.9-4.7); CHOLESTEROL 94 MD/DL (0-199); CREATININE, SERUM 0.84 mg/dL (0.72-1.25); EST GLOMERULAR FILTRATION RATE > 60 ML/MIN (60-); GLUCOSE 84 mg/dL (74-118); HDL CHOLESTEROL 45 MG/DL (40-60); LDL CHOLESTEROL 35 MG/DL (60-130); POTASSIUM 3.7 mmol/L (3.5-5.1); SODIUM 139 mmol/L (136-145); TRIGLYCERIDES 69 MG/DL (0-149)
--- NOTE | 2018-12-19 07:00 | NUR ---
received patient ambulating in room to bathroom using walker. denies pain. Resp even and unlabored. denies SOB. instructed to use call light in bathroom to call for assistance.
[2018-12-19] MEDS: ASPIRIN 81 MG ENTERIC COATED PO SCH (08:45)
[2018-12-19] MEDS: FAMOTIDINE 20 MG TAB PO SCH (08:45)
[2018-12-19] MEDS ORDERED: FUROSEMIDE INJ 10 MG/ML 2 ML VIAL IV SCH (09:00)
[2018-12-19] MEDS ORDERED: CARVEDILOL 3.125 MG TAB PO SCH ×2 (13:00→21:00)
[2018-12-19] MEDS ORDERED: POTASSIUM CHLORIDE 20 MEQ TAB CR PO NR (13:00)
[2018-12-19] MEDS ORDERED: FUROSEMIDE INJ 10 MG/ML 4 ML VIAL IV NR (13:00)
[2018-12-19] MEDS: FUROSEMIDE INJ 10 MG/ML 4 ML VIAL IV SCH (16:21)
[2018-12-19] MEDS: INSULIN LISPRO 100 UNIT/1 ML 3ML VIAL SQ SCH ×2 (16:30→20:26)
--- NOTE | 2018-12-19 17:18 | Consultation ---
DATE OF CONSULTATION: Cardiology Consultation CONSULTING PHYSICIAN: Bradley Walsh M.D., Interventional Cardiology. REASON FOR CONSULTATION: Chest pain, shortness of breath. HISTORY OF PRESENT ILLNESS: Mr. Leung is a pleasant 83-year-old man with history of CAD status post aortocoronary bypass approximately 13 years prior, reports 3-vessel bypass at that time, hypertension, diabetes mellitus type 2, gastroesophageal reflux disease and BPH as well as morbid obesity, who presents to the hospital via the Emergency Department with complaints of gradually progressing lower extremity edema, dyspnea on exertion, and chest pain. He reports previously being on diuretics, which were discontinued given complaints of nocturia and frequent urination. At that time, he has noted gradually worsening lower extremity edema since associated with his dyspnea on exertion. He also reports right-sided chest discomfort, which is pressure-like, constant, worse with cough and improved by belching, unaffected by exertion. This has been ongoing for various months. His EKG shows sinus rhythm with nonspecific repolarization abnormalities, mainly T-wave inversions, which is asymmetrical T-wave in the inferior leads. Telemetry shows sinus rhythm. He has serial cardiac biomarkers performed while in the hospital, which have been all negative. Troponin I 2.9, as well as BNP of 56. His lab results remarkable for an LDL of 35, total cholesterol of 94, HDL of 45, triglycerides of 69. His creatinine is 1.1. He is mildly anemic at 11.4. Flu testing antigen type A and B negative. His chest x-ray reveals cardiomegaly without decompensation. REVIEW OF SYSTEMS: A 12-system review is negative except for as noted above. ALLERGIES: PENICILLIN, CIPROFLOXACIN, HYDROCODONE, PAROXETINE, AND PREDNISONE. PAST MEDICAL HISTORY: As per HPI. SOCIAL HISTORY: No active alcohol, smoking, or drugs. FAMILY HISTORY: Noncontributory. PHYSICAL EXAMINATION: VITAL SIGNS: Temperature 97.1, heart rate 78, respiratory rate 20, blood pressure 164/71, O2 saturation 93% on room air. GENERAL: In no acute distress. NECK: JVD elevated to lower 3rd of neck. Carotid bruits, left more than right. CHEST: With decreased breath sounds in bilateral bases. CARDIOVASCULAR: Regular rate and rhythm. Normal S1 and S2. No S3, no S4. No murmurs or rubs. Sternotomy scar. ABDOMEN: Soft, nontender. EXTREMITIES: 1+ edema to bilateral lower extremities. CARDIOVASCULAR MEDICATIONS: Carvedilol 12.5 mg every 12 hours, aspirin 81 mg daily, and p.r.n. nitroglycerin. ASSESSMENT: 1. Chest pain, atypical. 2. Dyspnea on exertion, which may represent anginal equivalent in a patient with history of coronary artery disease and prior remote aortocoronary bypass. 3. Gllye-oy-lirrjqw diastolic heart failure. 4. Diabetes mellitus, type 2. 5. Hypertension. 6. Gastroesophageal reflux disease. 7. Benign prostatic hyperplasia with suspected obstructive symptoms. 8. History of snoring, suspected obstructive sleep apnea. 9. Carotid bruits, left more than right. RECOMMENDATIONS: 1. Diuretic trial. 2. Optimize antihypertensive regimen. 3. Aspirin. 4. Statin for history of CAD, secondary prevention. 5. Stress test, Lexiscan myocardial perfusion SPECT. 6. Carotid ultrasound. 7. Further recommendations to follow. Please keep on telemetry. MD BRENDAN Muir/DOLORES /[id number]
--- NOTE | 2018-12-19 17:37 | NUR ---
obtained informed consent from patient for stress test.
--- NOTE | 2018-12-19 19:06 | NUR ---
walking rounds done with oncoming nurse.
[2018-12-19] MEDS: ATORVASTATIN 20 MG TAB PO SCH (20:26)
[2018-12-19] MEDS: CARVEDILOL 12.5 MG TAB PO SCH (20:26)
[2018-12-19] MEDS ORDERED: ALPRAZOLAM 0.25 MG TAB PO PRN (20:30)
[2018-12-20] VITALS (7 sets, daily range): BP systolic 148–178; BP diastolic 75–91
[2018-12-20 05:22] LABS: BASOPHILS # (AUTO) 0.1 (0.0-0.1); BASOPHILS % 0.7 % (0.0-1.0); EOSINOPHILS # (AUTO) 0.5 (0.0-0.4); EOSINOPHILS % 6.1 % (0.0-6.0); HEMATOCRIT 35.8 % (38.2-49.6); HEMOGLOBIN 11.9 g/dL (14.0-18.0); LYMPHOCYTES # (AUTO) 2.3 (1.0-3.2); MEAN CORPUSCULAR HEMOGLOBIN 32.5 pg (28-32); MEAN CORPUSCULAR HGB CONC 33.2 g/dL (31-35); MEAN CORPUSCULAR VOLUME 97.8 fL (81-99); MONOCYTES # (AUTO) 0.7 (0.2-0.8); MONOCYTES % 8.2 % (4.4-11.3); NEUTROPHILS # (AUTO) 4.8 (2.1-6.9); NEUTROPHILS % 57.6 % (38.7-80.0); PLATELET COUNT 200 x10e3/uL (140-360); RED BLOOD COUNT 3.66 x10e6/uL (4.3-5.7); RED CELL DISTRIBUTION WIDTH 14.1 % (11.7-14.4)
[2018-12-20 05:50] LABS: ANION GAP 10.9 mmol/L (8-16); BLOOD UREA NITROGEN 15 mg/dL (7-26); BUN/CREATININE RATIO 18 (6-25); CALCIUM 8.7 mg/dL (8.4-10.2); CARBON DIOXIDE 28 mmol/L (22-29); CHLORIDE 104 mmol/L (98-107); CREATININE, SERUM 0.85 mg/dL (0.72-1.25); EST GLOMERULAR FILTRATION RATE > 60 ML/MIN (60-); GLUCOSE 112 mg/dL (74-118); MAGNESIUM 2.1 MG/DL (1.3-2.1); POTASSIUM 3.9 mmol/L (3.5-5.1); SODIUM 139 mmol/L (136-145)
[2018-12-20] MEDS: INSULIN LISPRO 100 UNIT/1 ML 3ML VIAL SQ SCH ×4 (07:30→21:00)
[2018-12-20] MEDS ORDERED: REGADENOSON 0.4 MG/5 ML SYR IV ONE (08:53)
--- NOTE | 2018-12-20 12:47 | NUR ---
Back from stress test. No s/s of acute distress noted
[2018-12-20] MEDS: ASPIRIN 81 MG ENTERIC COATED PO SCH (12:50)
[2018-12-20] MEDS: CARVEDILOL 12.5 MG TAB PO SCH ×2 (12:50→21:12)
[2018-12-20] MEDS: FUROSEMIDE INJ 10 MG/ML 4 ML VIAL IV SCH ×2 (12:50→16:57)
--- NOTE | 2018-12-20 14:47 | Progress Note ---
DATE: 12/20/2018 Cardiology Progress Note SUBJECTIVE: Denies any chest pain or shortness of breath. Undergoing stress test today. OBJECTIVE: VITAL SIGNS: Reviewed. Temperature 97 degrees, heart rate 63, respiratory rate 18, blood pressure 152/77, and O2 saturation 96% on room air. GENERAL: In no acute distress, alert. NECK: No JVD. CHEST: Clear to auscultation. CARDIOVASCULAR: Regular rate and rhythm. Normal S1 and S2. ABDOMEN: Soft, nontender. EXTREMITIES: Trace edema. CARDIOVASCULAR MEDICATIONS: Reviewed. Carvedilol 25 mg every 12 hours, atorvastatin 20 mg at bedtime, aspirin 81 mg daily, furosemide 40 mg IV b.i.d., and nitroglycerin p.r.n. STUDIES: Reviewed. White blood cells 8.3, hemoglobin 11.9, and platelets 200. Sodium 139, potassium 3.9, chloride 104, bicarbonate 28, BUN 15, creatinine 0.85, glucose 106, calcium 8.7, and magnesium 2.1. Troponin I negative x3. ASSESSMENT: 1. Chest pain, atypical. 2. Dyspnea on exertion, which may represent anginal equivalent. The patient has a history of coronary artery disease, status post remote aortocoronary bypass. 3. Acute on chronic diastolic heart failure. 4. Diabetes mellitus type 2. 5. Hypertension. 6. Gastroesophageal reflux disease. 7. BPH with obstructive symptomatology. 8. Snoring and suspected obstructive sleep apnea. 9. Carotid bruits, left more than right. RECOMMENDATIONS: 1. Continue current cardiovascular medications. 2. Stress test, ongoing this morning, reports to follow. 3. If decision to discharge today, advised an outpatient carotid ultrasound, images currently not performed or available for review yet. Bradley Walsh MD AFV/MODL /[id number]
--- NOTE | 2018-12-20 17:23 | NUR ---
Nutrition Screen Note RD Recommendation for Physician: -Rec adding cardiac to ADA diet as medically appropriate -Pt refused diet education on 12/20 Plan of Care: RD following, monitoring for tolerance and adequacy Nutrition reason for involvement: Diagnosis Primary Diagnose(s): 1. Chest pain, atypical. 2. Dyspnea on exertion. 3. Acute on chronic diastolic heart failure. PMH: CAD status post aortocoronary bypass approximately 13 years prior, reports 3-vessel bypass at that time, hypertension, diabetes mellitus type 2, gastroesophageal reflux disease and BPH as well as morbid obesity Ht: 69in Wt: 237.44lb BMI: 35.1kg/m2 IBW: 160lb RD Assessment: (12/20) Chart reviewed. Labs and meds reviewed. 83yo M, who was admitted for chest pain and SOB. Currently on Lasix. Visited pt in the room. Pt reported good appetite with 75-100% recorded meal intake. No GI complains noted. Pt denied any chewing or swallowing issue. No recent weight loss reported. Pt refused diet education. Will continue to monitor and follow. Current Diet: ADA 1800 Malnutrition Evaluation (12/20) The patient does not meet criteria for a specified degree of malnutrition at this time. Will re-evaluate at follow-up as appropriate. Diet Education Needs Assessment: Diet education indicated, pt was not interested. Nutrition Care Level: low Signed: Roxanna Kraft, , RD, LD
--- NOTE | 2018-12-20 19:00 | NUR ---
Report given to oncoming nurse. at bedside. No s/s of acute distress noted
[2018-12-20] MEDS: ATORVASTATIN 20 MG TAB PO SCH (21:13)
[2018-12-21] VITALS: BP 145/73
[2018-12-21 04:00] VITALS: BP 147/73
[2018-12-21 04:49] VITALS: BP 145/73
[2018-12-21 07:30] VITALS: BP 148/78
[2018-12-21] MEDS: INSULIN LISPRO 100 UNIT/1 ML 3ML VIAL SQ SCH ×2 (07:30→11:30)
--- NOTE | 2018-12-21 07:30 | NUR ---
pt awake up on rounds, pt alert resp even and unlabored, pt able to make needs known, no c/o pain when asked, no distress noted, call light in reach.
[2018-12-21 08:00] LABS: ANION GAP 11.7 mmol/L (8-16); BLOOD UREA NITROGEN 17 mg/dL (7-26); BUN/CREATININE RATIO 20 (6-25); CALCIUM 8.6 mg/dL (8.4-10.2); CARBON DIOXIDE 28 mmol/L (22-29); CHLORIDE 100 mmol/L (98-107); CREATININE, SERUM 0.87 mg/dL (0.72-1.25); EST GLOMERULAR FILTRATION RATE > 60 ML/MIN (60-); GLUCOSE 127 mg/dL (74-118); MAGNESIUM 2.2 MG/DL (1.3-2.1); POTASSIUM 3.7 mmol/L (3.5-5.1); SODIUM 136 mmol/L (136-145)
[2018-12-21 08:13] VITALS: BP 148/70
[2018-12-21] MEDS: FUROSEMIDE INJ 10 MG/ML 4 ML VIAL IV SCH (09:00)
[2018-12-21] MEDS: CARVEDILOL 12.5 MG TAB PO SCH (09:00)
[2018-12-21] MEDS: ASPIRIN 81 MG ENTERIC COATED PO SCH (09:00)
[2018-12-21 11:46] VITALS: BP 146/70
--- NOTE | 2018-12-21 12:45 | NUR ---
Discharge instructions and prescriptions were given to the patient, her verbalized understanding. Clarified with Dr. Bartlett that patient does not need any prescriptions at this time. IV to the left arm was removed with tip intact, tele removed.
--- NOTE | 2018-12-21 21:05 | Discharge Summary ---
PRIMARY CARE DOCTOR: Dr. Hermelinda Fierro. FINAL DIAGNOSIS: Acute coronary syndrome. SECONDARY DIAGNOSES: 1. Acute discussed exacerbation of diastolic congestive heart failure. 2. Diabetes. 3. Hypertension. CONSULTANTS: Dr. Patel, Cardiology. PROCEDURES/STUDIES PERFORMED: 1. Carotid ultrasound. 2. Stress test. HISTORY: Per H and P. HOSPITAL COURSE: The patient had 3 negative troponins. Therefore, there was no acute myocardial infarction. The patient underwent stress test, which was normal. Per history, the patient's oral Lasix was recently held due to nocturia. The patient had diastolic heart failure, IV Lasix were given. His dyspnea on exertion was better. Therefore, the patient can go home today. He will need to continue his oral Lasix at home and also his Flomax, but the patient was found to have a carotid bruit on exam. His carotid ultrasound does show about 70% stenosis on both sides. Since he is asymptomatic at this time, we will continue outpatient monitoring. I had relayed this message to his primary care doctor. The patient was seen and examined today. CONDITION ON DISCHARGE: Stable. DISCHARGE MEDICATIONS: Please see medication reconciliation form. Yiching MD NORMA Nails/DOLORES /[id number] cc: [facility]
== END 2018-12-21 12:55 | disposition home or self-care (01) ==
LOC: ER 17:12 → ERHOLD 19:31 → MED/SURG2 20:03
PROVIDERS: ADMIT Internal Medicine; ATTEND Internal Medicine
DX: I24.9 Acute ischemic heart disease, unspecified (principal); I50.33 Acute on chronic diastolic (congestive) heart failure; I11.0 Hypertensive heart disease with heart failure; E11.9 Type 2 diabetes mellitus without complications; E78.5 Hyperlipidemia, unspecified; K21.9 Gastro-esophageal reflux disease without esophagitis; Z82.49 Family history of ischemic heart disease and other diseases of the circulatory system; Z88.1 Allergy status to other antibiotic agents; Z88.5 Allergy status to narcotic agent; Z88.0 Allergy status to penicillin; Z88.8 Allergy status to other drugs, medicaments and biological substances; Z95.1 Presence of aortocoronary bypass graft; R06.00 Dyspnea, unspecified; N40.1 Benign prostatic hyperplasia with lower urinary tract symptoms; N13.8 Other obstructive and reflux uropathy; R06.83 Snoring; R09.89 Other specified symptoms and signs involving the circulatory and respiratory systems; Z79.82 Long term (current) use of aspirin
CPT/HCPCS: 36415 ×3; 71046; 78452; 80048 ×3; 80053; 80061; 81001; 82550 ×2; 82553 ×2; 82948 ×3; 83735 ×3; 83880; 84443; 84484 ×2; 85025 ×3; 85610; 85730; 87086; 87400; 93005; 93017; 93306; 93880; 97139; 99284; A9502; G0378 ×4; J1940 ×4; J2785

== ENCOUNTER 2022-07-21 13:34 | Emergency (ER) | payer MEDICARE, OTHER ==
[~2022-07-21] VITALS: Ht 175.3 cm; Wt 107.5 kg
[2022-07-21 14:26] LABS: BASOPHILS # (AUTO) 0.1 (0.0-0.1); BASOPHILS % 0.6 % (0.0-1.0); EOSINOPHILS # (AUTO) 0.2 (0.0-0.4); EOSINOPHILS % 2.7 % (0.0-6.0); HEMATOCRIT 35.6 % (38.2-49.6); HEMOGLOBIN 12.4 g/dL (14.0-18.0); LYMPHOCYTES # (AUTO) 1.8 (1.0-3.2); LYMPHOCYTES % 21.7 % (18.0-39.1); MEAN CORPUSCULAR HEMOGLOBIN 33.5 pg (28-32); MEAN CORPUSCULAR HGB CONC 34.8 g/dL (31-35); MEAN CORPUSCULAR VOLUME 96.2 fL (81-99); MONOCYTES # (AUTO) 0.6 (0.2-0.8); MONOCYTES % 6.8 % (4.4-11.3); NEUTROPHILS # (AUTO) 5.6 (2.1-6.9); NEUTROPHILS % 67.8 % (38.7-80.0); PLATELET COUNT 206 x10e3/uL (140-360); RED CELL DISTRIBUTION WIDTH 13.4 % (11.7-14.4)
[2022-07-21 14:40] LABS: INR 0.97; PARTIAL THROMBOPLASTIN TIME 28.9 seconds (23.8-35.5); PROTHROMBIN TIME 13.8 seconds (11.9-14.5)
[2022-07-21 14:50] LABS: ALBUMIN 3.5 g/dL (3.5-5.0); ALBUMIN/GLOBULIN RATIO 1.1 (0.8-2.0); ANION GAP 15.8 mmol/L (8-16); CALCIUM 8.4 mg/dL (8.4-10.2); CREATININE, SERUM 0.92 mg/dL (0.72-1.25); POTASSIUM 3.8 mmol/L (3.5-5.1)
[2022-07-21 14:57] LABS: CREATINE KINASE MB 1.1 ng/mL (0-5.0)
[2022-07-21] MEDS ORDERED: ONDANSETRON HCL INJ 2MG/ML 2ML 2 MG/ML VIAL IV STA (15:47)
[2022-07-21] MEDS ORDERED: SODIUM CHLORIDE 0.9% 1000ML 1,000 ML IV STA (15:47)
[2022-07-21] MEDS ORDERED: MECLIZINE HCL 12.5 MG TAB PO ONE (16:00)
[2022-07-21] MEDS ORDERED: SODIUM CHLORIDE 0.9% 100 ML ONE (17:20)
[2022-07-21] MEDS ORDERED: IOPAMIDOL 370 MG/ML 100 ML INFUS..BTL INJ ONE (17:20)
[2022-07-21] MEDS ORDERED: ACETAMINOPHEN 325 MG TAB PO ONE (19:30)
[2022-07-21] MEDS ORDERED: ASPIRIN 81 MG CHEW TAB PO ONE (20:00)
[2022-07-21 23:32] VITALS: BP 146/84
== END 2022-07-21 22:35 | disposition other institution (70) ==
LOC: ER 14:25
DX: R42 Dizziness and giddiness (principal); I10 Essential (primary) hypertension; E11.9 Type 2 diabetes mellitus without complications; F41.9 Anxiety disorder, unspecified; E78.5 Hyperlipidemia, unspecified; Z95.1 Presence of aortocoronary bypass graft; Z20.822 Contact with and (suspected) exposure to COVID-19
CPT/HCPCS: 36415; 70450; 70496; 70498; 80053; 82550; 82553; 84484; 85025; 85610; 85730; 93005; 99285; J2405; J7030; J7050; J8597; Q9967; U0002